=== PATIENT | female | born 1965 | race Caucasian/White ===

== ENCOUNTER 2019-05-01 06:17 | Day surgery (SDC) | payer OTHER ==
[~2019-05-01] VITALS: Ht 165.1 cm; Wt 81.0 kg
[~2019-05-01 06:17] MED LIST: BACI30OI6 TP; CITA-106 PO; CLON.2 PO; GABA-531 PO; KETO10DR3 OU; LISI-662 PO; METF-960 PO; SIMV-260 PO; SODIUM CHLORIDE 0.9% 1,000 ML IV ONE
[2019-05-01] MEDS ORDERED: LIDOCAINE/PF 2% 5 ML SYRINGE IVP ONE (06:18)
[2019-05-01] MEDS ORDERED: PROPOFOL 1% 20 ML VIAL IVP ONE (06:18)
[2019-05-01] MEDS ORDERED: SODIUM CHLORIDE 0.9% 1,000 ML IV ONE (06:30)
[2019-05-01 07:45] LABS: GLUCOMETER DEV NAME(LOC) SDS.; GLUCOSE,POINT OF CARE 117 MG/DL (70-110)
== END 2019-05-01 10:00 | disposition home or self-care (01) ==
LOC: SURGERY 06:17
PROVIDERS: ATTEND Internal Medicine Gastroenterology
DX: K59.00 Constipation, unspecified (principal); K63.89 Other specified diseases of intestine; K29.50 Unspecified chronic gastritis without bleeding; K21.9 Gastro-esophageal reflux disease without esophagitis; E11.9 Type 2 diabetes mellitus without complications; Z99.3 Dependence on wheelchair; Z86.73 Personal history of transient ischemic attack (TIA), and cerebral infarction without residual deficits; Z98.890 Other specified postprocedural states; Z79.84 Long term (current) use of oral hypoglycemic drugs; Z79.899 Other long term (current) drug therapy
CPT/HCPCS: 45378; 43239; 82962; 88305; 88312; 88313; 93005; C1769; J2704; J3490; J7030